=== PATIENT | male | born 1965 | race American Indian/Alaskan Native ===

== ENCOUNTER 2017-09-06 06:41 | Day surgery (SDC) | payer BC ==
[2017-09-05 10:22] VITALS: BMI 44.8
[2017-09-06] MEDS ORDERED: Midazolam 2 MG/2 ML VIAL ONE ×2 (07:26→09:38)
[2017-09-06] MEDS ORDERED: Lidocaine 2% Inj (20ml) ONE (07:26)
[2017-09-06] MEDS ORDERED: Iodixanol 320 MG/ML 200 ML BOTTLE IV ONE (07:27)
[2017-09-06 08:41] VITALS: RESP 18; O2SAT 99
[2017-09-06] MEDS ORDERED: Sodium Chloride 0.9% 1,000 ML IV SCH (10:45)
[2017-09-06 11:56] VITALS: TEMP 98.2
[2017-09-06 16:07] VITALS: BP 107/70; PULSE 64
--- NOTE | 2017-09-06 20:38 | CARDCATH ---
CARDIAC CATHETERIZATION REPORT PROCEDURE DATE: 09/06/2017 PROCEDURES: 1. Selective left and right coronary angiography. 2. Left ventriculography. 3. Percutaneous coronary intervention of ramus branch with drug-eluting stent. 4. Right femoral arteriography. 5. Angio-Seal deployment. HISTORY: This is a 52-year-old man with a history of hypertension and recent exertional dyspnea, who underwent a recent stress test, which was abnormal. Cardiac catheterization was advised. CLINICAL INDICATIONS: 1. Exertional chest pain. 2. Abnormal stress test. FINDINGS: HEMODYNAMICS: The aortic pressure was 110/70 with left ventricular pressure of 110/16. CORONARY ANATOMY: 1. The left mainstem was extremely short and the LAD and circumflex nearly had separate ostia. 2. The left anterior ascending artery had a 30% tapering in its proximal segment. The distal vessel and its branches had minimal disease. The LAD was fairly large and wrapped around the apex. 3. The left circumflex artery gave rise to ramus branch proximally, which had a diffuse 50% lesion proximally followed by severe 80% stenosis. 4. The left circumflex proper had a mild diffuse irregularities. The obtuse marginal branch is in left posterior ascending artery had no significant disease. 5. The right coronary artery was in moderate size and had minimal irregularities. LEFT VENTRICULOGRAPHY: A hand injection was performed in the left ventricle revealing normal wall motion with an ejection fraction of 60%. CORONARY INTERVENTION: PCI of the ramus branch was then attempted. A 5000 units of intervenous heparin was administered and the ACT was greater than 230 seconds during the procedure. A 3.5 EBU guide catheter was utilized and the lesion in the ramus branch was successfully crossed with the use of a [employer] wire. Following this, initial placement was performed with a 2.5 x 12 mm balloon. The balloon catheter was then withdrawn and a 2.75 x 26 mm Resolute drug-eluting stent was advanced and deployed to 12 atmospheres. There was 0% residual stenosis following the intervention. LISETH grade 3 flow was present before and after the intervention. RIGHT FEMORAL ARTERIOGRAPHY: A right femoral arteriogram was performed in the MORGAN projection. This revealed no evidence of significant disease and appropriate level of arterial punch. The puncture site was then closed with deployment of an Angio-Seal device. CONCLUSION: 1. Severe ramus branch disease. 2. Mild proximal LAD disease. 3. Normal LV systolic function. 4. Successful PCI of ramus branch with drug-eluting stent. RECOMMENDATIONS: Given the above findings, aggressive risk factors control was advised. Aspirin and Plavix therapy will be continued for 1 year. Followup stress testing to monitor for stent based stenosis as well as progression of LAD disease will be planned. Rafael Augustin MD cc: Carlos Baltazar M.D. MTDD
--- NOTE | 2017-09-06 21:26 | CARD ---
APPROVED REPORT EKG Measurement Heart [id number] <Conclusion> Sinus rhythm with 1st degree AV block Nonspecific ST and T wave abnormality Abnormal ECG
[2017-09-07] MEDS ORDERED: Metoprolol Succinate 25 mg XL Tab PO SCH (10:00)
== END 2017-09-06 17:39 | disposition home or self-care (01) ==
LOC: CATH 06:41 → 2RSO 10:31 → CATH 17:39
PROVIDERS: ATTEND Internal Medicine Cardiovascular Disease
DX: I25.10 Atherosclerotic heart disease of native coronary artery without angina pectoris (principal); I10 Essential (primary) hypertension
CPT/HCPCS: 36415; 85175; 86850; 86900; 93005; 93458; 99152; 99153; C1725; C1760; C1769 ×2; C1874; C1887; C2629; C9600; J1644 ×2; J2250; J3010; J7040 ×2